=== PATIENT | male | born 1945 | race Caucasian/White ===

== ENCOUNTER → 2019-02-21 | Outpatient (RCR) | payer OTHER | LOC: RESP 10:08 | PROVIDERS: ATTEND Nurse Practitioner Primary Care | DX: R06.00 Dyspnea, unspecified (principal); G47.33 Obstructive sleep apnea (adult) (pediatric); J43.9 Emphysema, unspecified; M06.9 Rheumatoid arthritis, unspecified | CPT/HCPCS: G0238; G0424 ==

== ENCOUNTER 2019-03-14 10:00 | Outpatient (RCR) | payer OTHER | END 2019-03-24 | LOC: RESP 10:00 | PROVIDERS: ATTEND Nurse Practitioner Primary Care | DX: J43.9 Emphysema, unspecified (principal) | CPT/HCPCS: G0238 ×7; G0424 ×7 ==

== ENCOUNTER 2019-04-13 10:00 | Outpatient (RCR) | payer OTHER | END 2019-04-23 | LOC: RESP 10:00 | PROVIDERS: ATTEND Nurse Practitioner Primary Care | DX: J43.9 Emphysema, unspecified (principal) | CPT/HCPCS: G0238 ×6; G0424 ×6 ==

== ENCOUNTER 2019-05-16 10:00 | Outpatient (RCR) | payer OTHER | END 2019-05-24 | LOC: RESP 10:00 | PROVIDERS: ATTEND Nurse Practitioner Primary Care | DX: J43.9 Emphysema, unspecified (principal) | CPT/HCPCS: G0238 ×4; G0424 ×4 ==

== ENCOUNTER 2019-07-19 14:34 | Outpatient (RCR) | payer OTHER, MEDICARE | END 2019-07-24 | LOC: RESP 14:34 | PROVIDERS: ATTEND Nurse Practitioner Primary Care | DX: R06.00 Dyspnea, unspecified (principal); J43.9 Emphysema, unspecified; G47.33 Obstructive sleep apnea (adult) (pediatric) | CPT/HCPCS: G0238 ×3; G0424 ×3 ==

== ENCOUNTER 2019-08-02 11:33 | Outpatient (RCR) | payer OTHER, MEDICARE | END 2019-08-24 | LOC: RESP 11:33 | PROVIDERS: ATTEND Nurse Practitioner Primary Care | DX: J43.9 Emphysema, unspecified (principal); G47.33 Obstructive sleep apnea (adult) (pediatric); R06.02 Shortness of breath; R06.00 Dyspnea, unspecified | CPT/HCPCS: G0238 ×3; G0424 ×3 ==